=== PATIENT | male | born 2000 | race African-American/Black ===

== ENCOUNTER 2019-08-25 03:13 | Emergency (ER) | payer BC, MEDICAID, OTHER ==
[~2019-08-25] VITALS: Ht 177.8 cm; Wt 99.8 kg
[2019-08-25] MEDS ORDERED: methylPREDNISolone SOD SUCC 125 MG/2 ML VL IM ONE (05:15)
[2019-08-25] MEDS ORDERED: IBUPROFEN 800 MG TAB PO ONE (05:15)
[2019-08-25 05:39] VITALS: BP 108/63
== END 2019-08-25 06:00 | disposition home or self-care (01) ==
LOC: ER 03:13
DX: L40.9 Psoriasis, unspecified (principal)
CPT/HCPCS: 96372; 99283; J2930